=== PATIENT | male | born 1960 | race Two or more races ===

== ENCOUNTER 2016-10-06 21:02 | Inpatient (IN) | payer MEDICARE, OTHER ==
[~2016-10-06] VITALS: Ht 180.3 cm; Wt 68.9 kg
[2016-10-06 20:00] VITALS: BP 124/77
[2016-10-06 21:45] VITALS: BP 124/77
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
[2016-10-06] MEDS ORDERED: ACETAMINOPHEN 325 MG TABLET PO PRN (22:00)
[2016-10-06] MEDS ORDERED: MAG HYDROX/AL HYDROX/SIMETH 30 ML UDC PO PRN (22:00)
[2016-10-06] MEDS ORDERED: TEMAZEPAM 7.5 MG CAPSULE PO PRN (22:00)
[2016-10-06] MEDS ORDERED: MAGNESIUM HYDROXIDE 30 ML UDC PO PRN (22:00)
[2016-10-06] MEDS ORDERED: LORAZEPAM 0.5 MG TABLET ONE (23:03)
[2016-10-06] MEDS ORDERED: TEMAZEPAM 7.5 MG CAPSULE ONE (23:03)
[2016-10-07] MEDS ORDERED: MEMA28CA PO (00:24)
[2016-10-07] MEDS ORDERED: LOVA20TA2 PO (00:24)
[2016-10-07] MEDS ORDERED: LEVE500T9 PO (00:24)
--- NOTE | 2016-10-07 00:46 | NUR ---
GPS RN NOTES REMOVED ATIVAN INSTEAD OF KLONOPIN. MEDICATION ALREADY OPENED. WASTED ATIVAN.
[2016-10-07 06:43] LABS: BASOPHILS % (AUTO) 0.3 % (0.0-2.0); EOSINOPHILS # (AUTO) 0.1 /CMM (0.0-0.7); EOSINOPHILS % (AUTO) 1.8 % (0.0-6.0); HEMATOCRIT 42 % (39-51); HEMOGLOBIN 14.3 g/dL (13.5-17.5); LYMPHOCYTES # (AUTO) 1.6 /CMM (0.8-4.8); LYMPHOCYTES % (AUTO) 29.4 % (20.0-44.0); MEAN CORPUSCULAR HEMOGLOBIN 32 PG (26.0-33.0); MEAN CORPUSCULAR HGB CONC 34 g/dl (31.0-36.0); MEAN CORPUSCULAR VOLUME 93 fL (80-96); MONOCYTES # (AUTO) 0.2 /CMM (0.1-1.30); MONOCYTES % (AUTO) 3.8 % (2.0-12.0); NEUTROPHILS # (AUTO) 3.5 /CMM (1.8-8.9); NEUTROPHILS % (AUTO) 64.7 % (43.0-81.0); PLATELET COUNT (AUTO) 210 /CMM (150-450); RDW COEFFICIENT OF VARIATION 12.9 (11.5-15.0); RED BLOOD CELL COUNT(AUTO) 4.47 MIL/uL (4.5-6.0); WHITE BLOOD COUNT (AUTO) 5.4 K/uL (4.3-11.0)
[2016-10-07 07:01] LABS: CALCIUM, SERUM 8.9 mg/dL (8.5-10.1); CREATININE 0.8 mg/dL (0.6-1.3); POTASSIUM 3.7 mmol/L (3.5-5.1); TOTAL PROTEIN, SERUM 7.5 g/dL (6.4-8.2)
[2016-10-07] MEDS ORDERED: LORA1TAB PO (07:45)
[2016-10-07] MEDS ORDERED: RISP0.253 PO (07:45)
[2016-10-07 08:00] VITALS: BP 120/79
[2016-10-07] MEDS: DIVALPROEX SODIUM 250 MG TABLET.DR PO SCH ×3 (11:28→17:14)
[2016-10-07] MEDS: risperiDONE 1 MG TABLET PO SCH ×2 (11:28→17:14)
--- NOTE | 2016-10-07 12:03 | NUR ---
Initial discharge plan: Pt. lives with significant other [address] [place] [address] Donna [phone] and per Donna she would like him to be placed in a facility as he has been becoming more and more aggressive. She states that pt's sister, Nida [phone] might want to take the patient to her house but SW will confirm that when pt. stabilizes further. Pt. may need placement. SW will follow up with MD and will speak with family again regarding safe and appropriate discharge plan.
[2016-10-07 15:58] VITALS: BP 115/55
[2016-10-07] MEDS: MEMANTINE HCL 5 MG TABLET PO SCH (17:14)
--- NOTE | 2016-10-07 19:17 | NUR ---
GPS/RN NOTE: RECEIVED UP ON THE DENYS-CHAIR, RESTING COMFORTABLY, NO APPARENT DISTRESS NOTED.
[2016-10-07 20:00] VITALS: BP 101/69
[2016-10-07] MEDS: ATORVASTATIN 10 MG TABLET PO SCH (21:24)
[2016-10-07] MEDS ORDERED: LOVASTATIN (NON FORMULARY) 20 MG TABLET PO SCH (22:00)
[2016-10-08 08:19] VITALS: BP 113/78
[2016-10-08] MEDS: DIVALPROEX SODIUM 250 MG TABLET.DR PO SCH ×2 (08:30→12:06)
[2016-10-08] MEDS: risperiDONE 1 MG TABLET PO SCH ×2 (08:30→17:54)
[2016-10-08] MEDS: MEMANTINE HCL 5 MG TABLET PO SCH ×2 (08:30→17:54)
[2016-10-08] MEDS: clonazePAM 0.5 MG TABLET PO PRN (10:40)
--- NOTE | 2016-10-08 10:40 | NUR ---
GPS/RN KLONOPIN 0.5MG PO GIVEN FOR AGITATION/SCREAMING
[2016-10-08] MEDS: DIVALPROEX SODIUM 125 MG CAP.SPRINK PO SCH ×2 (13:00→17:55)
[2016-10-08 16:00] VITALS: BP 102/72
[2016-10-08] MEDS ORDERED: DIVALPROEX SODIUM 125 MG CAP.SPRINK PO SCH (17:00)
[2016-10-08 20:00] VITALS: BP 130/79
--- NOTE | 2016-10-08 20:56 | NUR ---
GPS/RN NOTE: RESTING IN BED, NO ACUTE DISTRESS NOTED. YELLS, SCREAMS INTERMITTENTLY. WILL CONTINUE TO MONITOR Q 15 MINS. TO MAINTAIN SAFETY.
[2016-10-08] MEDS: ATORVASTATIN 10 MG TABLET PO SCH (21:29)
[2016-10-09 08:00] VITALS: BP 102/66
[2016-10-09] MEDS: MEMANTINE HCL 5 MG TABLET PO SCH ×2 (08:09→16:48)
[2016-10-09] MEDS: risperiDONE 1 MG TABLET PO SCH ×2 (08:09→16:48)
[2016-10-09] MEDS: clonazePAM 0.5 MG TABLET PO PRN (08:09)
[2016-10-09] MEDS: DIVALPROEX SODIUM 125 MG CAP.SPRINK PO SCH ×3 (08:09→16:48)
--- NOTE | 2016-10-09 08:09 | NUR ---
[id number]: GAVE ATIVAN 0.5 MG PO FOR ANXIETY UPON PT REQUEST AND WILL CONTINUE TO MONITOR FOR EFFECTIVENESS OF MEDICATION
--- NOTE | 2016-10-09 12:56 | NUR ---
[id number]: DIDN'T ADMINISTER DEPAKOTE 250 MG PO DUE TO PT IS SLEEPING AND WILL CONTINUE TO MONITOR.
--- NOTE | 2016-10-09 14:08 | NUR ---
[id number]: FAMILY MEMBER NAMED NAOMI DUCKWORTH REQUEST PT TO BE PLACED ON DNR AND SIGNED POLST FORM. CALLED DR. ZAVALA TO GET ORDER FOR DNR AND WITNESSED BY NURSE AND CHARGE NURSE AND NOTIFIED DR. ZAVALA THAT THIS ORDER NEEDS TO BE SIGNED BY A PHYSICIAN WITHIN THE NEXT 24 HOURS.
[2016-10-09 16:00] VITALS: BP 100/60
--- NOTE | 2016-10-09 20:15 | NUR ---
GPS RN NOTE, PATIENT VIAL SIGNS ARE FOLLOWS BP 101/63, TEMP 98.9, RASPATORY 19, PULSE 100, AND SPO2 OF 90%. PATIENT LUNG SOUNDS HAVE WHEEZE THOUGH OUT AND ARE DIMINISHED AT THE BASES UPON AUSCULTATION. PAGED [facility] AND INFORMED WITH SANTHOSH CHACON OF MY FINDINGS. SANTHOSH CHACON ORDERED ALBUTEROL 2.5MG VIA NEB Q6HR PRN, MUCOMYST 600MG Q8HR PRN, OXYGEN 2 LITERS VIA OXYGEN CONCENTRATOR AND CHEST X - RAY STAT. ALL ORDERS NOTED AND CARRIED OUT. WILL CONTINUE TO MONITOR THIS PATIENT.
[2016-10-09 20:23] VITALS: BP 101/63
[2016-10-09] MEDS ORDERED: ALBUTEROL FS 2.5 MG/3 ML VIAL.NEB NEB PRN (20:30)
[2016-10-09] MEDS ORDERED: ACETYLCYSTEINE 20% SOLN 800 MG/4 ML VIAL NEB PRN (20:30)
[2016-10-09] MEDS ORDERED: ALBUTEROL FS 2.5 MG/3 ML VIAL.NEB ONE (21:15)
[2016-10-09] MEDS ORDERED: ACETYLCYSTEINE 10% SOLN 400 MG/4 ML VIAL ONE (21:15)
[2016-10-09] MEDS: ATORVASTATIN 10 MG TABLET PO SCH (21:20)
[2016-10-09] MEDS ORDERED: ACETYLCYSTEINE 10% SOLN 400 MG/4 ML VIAL NEB PRN (21:30)
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
--- NOTE | 2016-10-09 22:56 | NUR ---
GPS/RN NOTE: SPOKE TO MATTHEW LIRA, RE: CHEST X-RAY RESULT. SHE SAID THAT SHE WILL COME TO SEE PATIENT ANTWANIGHT.
[2016-10-09 23:24] LABS: BASOPHILS % (AUTO) 0.2 % (0.0-2.0); EOSINOPHILS % (AUTO) 0.1 % (0.0-6.0); HEMATOCRIT 45 % (39-51); HEMOGLOBIN 15.1 g/dL (13.5-17.5); LYMPHOCYTES # (AUTO) 1.9 /CMM (0.8-4.8); LYMPHOCYTES % (AUTO) 12.4 % (20.0-44.0); MEAN CORPUSCULAR HEMOGLOBIN 31 PG (26.0-33.0); MEAN CORPUSCULAR HGB CONC 33 g/dl (31.0-36.0); MEAN CORPUSCULAR VOLUME 94 fL (80-96); MONOCYTES # (AUTO) 0.8 /CMM (0.1-1.30); MONOCYTES % (AUTO) 4.8 % (2.0-12.0); NEUTROPHILS % (AUTO) 82.5 % (43.0-81.0); PLATELET COUNT (AUTO) 186 /CMM (150-450); RDW COEFFICIENT OF VARIATION 12.8 (11.5-15.0); RED BLOOD CELL COUNT(AUTO) 4.83 MIL/uL (4.5-6.0); WHITE BLOOD COUNT (AUTO) 15.7 K/uL (4.3-11.0)
[2016-10-09 23:29] LABS: CALCIUM, SERUM 8.9 mg/dL (8.5-10.1); CREATININE 1.2 mg/dL (0.6-1.3)
--- NOTE | 2016-10-10 02:05 | NUR ---
GPS RN NOTE, SANTHOSH CHACON ORDERED TO DISCHARGE TO [facility] AND ADMIT PATIENT A TELE PATIENT FOR PNEUMONIA. PATIENT IS STABLE CONDITION FOR TRANSFER. PATIENT UNABLE TO SIGN PAPERWORK ALTHOUGH WITNESS / COSIGNER WAS PRESENT. PATIENT BELONGINGS SENT WITH PATIENT. MEDICATIONS WERE RECONCILED WITH DR MALAVE AND SANTHOSH CHACON. REPORT GIVEN TO BLANCA VERDIN ON .
[2016-10-10] MEDS ORDERED: MAG30ORA PO (02:42)
[2016-10-10] MEDS ORDERED: ATOR10TA PO (02:42)
[2016-10-10] MEDS ORDERED: ACET-868 PO (02:42)
[2016-10-10] MEDS ORDERED: MAGN400O6 PO (02:42)
[2016-10-10] MEDS ORDERED: CLON0.5T PO (02:42)
[2016-10-10] MEDS ORDERED: TEMA7.5C PO (02:42)
[2016-10-10] MEDS ORDERED: ACET1OOV6 HHN (02:42)
[2016-10-10] MEDS ORDERED: ATOR10TA GT (02:42)
[2016-10-10] MEDS ORDERED: RISP0.5T2 PO (02:42)
[2016-10-10] MEDS ORDERED: DIVA125C PO (02:42)
[2016-10-10] MEDS ORDERED: MEMA10TA PO (02:42)
[2016-10-10] MEDS ORDERED: ALBU2.5V38 NEB (02:51)
[2016-10-12] MEDS ORDERED: LEVO750T21 PO (10:16)
== END 2016-10-10 02:06 | disposition short-term general hospital (02) | DRG 885 ==
LOC: EDSEX 21:02 → GPS 21:02
PROVIDERS: ADMIT Psychiatry & Neurology Psychiatry; ATTEND Family Medicine
DX: F29 Unspecified psychosis not due to a substance or known physiological condition (principal); J18.9 Pneumonia, unspecified organism; G93.40 Encephalopathy, unspecified; F39 Unspecified mood [affective] disorder; E78.5 Hyperlipidemia, unspecified; F03.90 Unspecified dementia, unspecified severity, without behavioral disturbance, psychotic disturbance, mood disturbance, and anxiety; Z73.6 Limitation of activities due to disability
CPT/HCPCS: 36415; 71010-TC; 80048-TC; 80053-TC; 80061-TC; 85025-TC; 87081-TC

== ENCOUNTER 2016-10-10 01:45 | Inpatient (IN) | payer MEDICARE, OTHER ==
[~2016-10-10] VITALS: Ht 175.3 cm; Wt 71.8 kg
[~2016-10-10 01:45] MED LIST: LEVE500T9 PO; LOVA20TA2 PO; MEMA28CA PO
[2016-10-10 01:55] VITALS: BP 96/68
[2016-10-10] MEDS ORDERED: ACET1OOV6 HHN (02:42)
[2016-10-10] MEDS ORDERED: MAGN400O6 PO (02:42)
[2016-10-10] MEDS ORDERED: ATOR10TA PO (02:42)
[2016-10-10] MEDS ORDERED: CLON0.5T PO (02:42)
[2016-10-10] MEDS ORDERED: ATOR10TA GT (02:42)
[2016-10-10] MEDS ORDERED: MAG30ORA PO (02:42)
[2016-10-10] MEDS ORDERED: RISP0.5T2 PO (02:42)
[2016-10-10] MEDS ORDERED: TEMA7.5C PO (02:42)
[2016-10-10] MEDS ORDERED: DIVA125C PO (02:42)
[2016-10-10] MEDS ORDERED: MEMA10TA PO (02:42)
[2016-10-10] MEDS ORDERED: ACET-868 PO (02:42)
[2016-10-10] MEDS ORDERED: ALBU2.5V38 NEB (02:51)
[2016-10-10] MEDS ORDERED: ONDANSETRON HCL/PF 4 MG/2 ML VIAL IVP PRN (04:00)
[2016-10-10] MEDS ORDERED: DEXTROSE 50%-WATER 50 ML DISP.SYRIN IV PRN (04:00)
[2016-10-10] MEDS ORDERED: ZOLPIDEM TARTRATE 5 MG TABLET GT PRN (04:00)
[2016-10-10] MEDS ORDERED: ACETAMINOPHEN 325 MG TABLET PO PRN (04:00)
[2016-10-10] MEDS ORDERED: LEVOFLOXACIN 750 MG /D5W 150ML 750 MG in PREMIX 1 EA IV SCH (04:00)
[2016-10-10] MEDS ORDERED: INSULIN REGULAR, HUMAN 100 UNIT/ML 3 ML VIAL SQ PRN (04:00)
[2016-10-10] MEDS: CEFTRIAXONE 1 G in IV D5W 50 ML IV SCH (04:00)
[2016-10-10] MEDS ORDERED: Z GUARD REMEDY 2 OZ OINT TP PRN (04:00)
[2016-10-10] MEDS ORDERED: HYDROCODONE/APAP 5/325MG 1 EACH TABLET PO PRN (04:00)
[2016-10-10] MEDS ORDERED: IPRATROPIUM NEB FS 0.5 MG/2.5 ML AMPUL.NEB NEB PRN (04:30)
[2016-10-10] MEDS ORDERED: ALBUTEROL FS 2.5 MG/0.5 ML VIAL.NEB NEB PRN (04:30)
[2016-10-10] MEDS ORDERED: TEMAZEPAM 7.5 MG CAPSULE PO PRN (04:30)
[2016-10-10] MEDS ORDERED: CEFTRIAXONE 1 G VIAL ONE (05:19)
[2016-10-10] MEDS ORDERED: IV D5W 50 ML IV ONE (05:20)
[2016-10-10] MEDS ORDERED: PANTOPRAZOLE 40 MG VIAL ONE (05:20)
[2016-10-10] MEDS ORDERED: LEVOFLOXACIN 750 MG /D5W 150ML 150 ML IV ONE (05:20)
[2016-10-10] MEDS ORDERED: IV SET PRIMARY PUMP SET 1 EA INFUS.SET MC ONE (05:33)
[2016-10-10] MEDS ORDERED: IV NS 0.9% 1,000 ML ONE (05:33)
[2016-10-10] MEDS ORDERED: SECONDARY IV SET 1 EA INFUS.SET MC ONE (05:34)
[2016-10-10] MEDS: PANTOPRAZOLE 40 MG VIAL IV SCH (05:52)
[2016-10-10] MEDS: IV NS 0.9% 1,000 ML IV PRN ×2 (05:54→21:01)
[2016-10-10] MEDS: LEVOFLOXACIN 750 MG /D5W 150ML 750 MG in PREMIX 1 EA IV SCH (06:00)
[2016-10-10 06:58] LABS: BASOPHILS % (AUTO) 0.2 % (0.0-2.0); EOSINOPHILS % (AUTO) 0.2 % (0.0-6.0); HEMATOCRIT 43 % (39-51); HEMOGLOBIN 14.4 g/dL (13.5-17.5); LYMPHOCYTES # (AUTO) 1.1 /CMM (0.8-4.8); LYMPHOCYTES % (AUTO) 8.5 % (20.0-44.0); MEAN CORPUSCULAR HEMOGLOBIN 32 PG (26.0-33.0); MEAN CORPUSCULAR HGB CONC 34 g/dl (31.0-36.0); MEAN CORPUSCULAR VOLUME 94 fL (80-96); MONOCYTES # (AUTO) 0.7 /CMM (0.1-1.30); MONOCYTES % (AUTO) 5.2 % (2.0-12.0); NEUTROPHILS # (AUTO) 11.2 /CMM (1.8-8.9); NEUTROPHILS % (AUTO) 85.9 % (43.0-81.0); PLATELET COUNT (AUTO) 192 /CMM (150-450); RDW COEFFICIENT OF VARIATION 12.8 (11.5-15.0); RED BLOOD CELL COUNT(AUTO) 4.52 MIL/uL (4.5-6.0)
[2016-10-10 07:01] VITALS: BP_SYST 93
[2016-10-10 07:15] LABS: CREATININE 1.1 mg/dL (0.6-1.3); POTASSIUM 4.1 mmol/L (3.5-5.1)
[2016-10-10] MEDS: BLOOD SUGAR DIAGNOSTIC 1 EACH STRIP IN SCH ×4 (07:30→21:00)
[2016-10-10] MEDS: LEVETIRACETAM SOL (5 ML) 100 MG/ML UDC GT SCH ×2 (09:36→20:57)
[2016-10-10] MEDS: MEMANTINE HCL 5 MG TABLET PO SCH ×2 (09:37→17:12)
[2016-10-10] MEDS: risperiDONE 1 MG TABLET PO SCH ×2 (09:37→17:12)
[2016-10-10 20:00] VITALS: BP 99/53
[2016-10-10] MEDS: ATORVASTATIN 10 MG TABLET PO SCH (21:00)
[2016-10-10] MEDS ORDERED: ATORVASTATIN 10 MG TABLET GT SCH (22:00)
[2016-10-11] MEDS: ACETYLCYSTEINE 10% SOLN 400 MG/4 ML VIAL NEB SCH ×4 (01:35→23:15)
[2016-10-11] MEDS: CEFTRIAXONE 1 G in IV D5W 50 ML IV SCH (03:30)
[2016-10-11] MEDS: PANTOPRAZOLE 40 MG VIAL IV SCH (03:35)
[2016-10-11] MEDS: LEVOFLOXACIN 750 MG /D5W 150ML 750 MG in PREMIX 1 EA IV SCH (05:05)
[2016-10-11] MEDS: BLOOD SUGAR DIAGNOSTIC 1 EACH STRIP IN SCH ×4 (06:37→21:39)
[2016-10-11 07:58] LABS: BASOPHILS % (AUTO) 0.3 % (0.0-2.0); EOSINOPHILS # (AUTO) 0.1 /CMM (0.0-0.7); EOSINOPHILS % (AUTO) 1.5 % (0.0-6.0); HEMATOCRIT 34 % (39-51); HEMOGLOBIN 11.4 g/dL (13.5-17.5); LYMPHOCYTES # (AUTO) 1.1 /CMM (0.8-4.8); LYMPHOCYTES % (AUTO) 16.1 % (20.0-44.0); MEAN CORPUSCULAR HEMOGLOBIN 32 PG (26.0-33.0); MEAN CORPUSCULAR HGB CONC 33 g/dl (31.0-36.0); MEAN CORPUSCULAR VOLUME 94 fL (80-96); MONOCYTES # (AUTO) 0.5 /CMM (0.1-1.30); MONOCYTES % (AUTO) 6.8 % (2.0-12.0); NEUTROPHILS # (AUTO) 5.4 /CMM (1.8-8.9); NEUTROPHILS % (AUTO) 75.3 % (43.0-81.0); PLATELET COUNT (AUTO) 160 /CMM (150-450); RDW COEFFICIENT OF VARIATION 12.7 (11.5-15.0); RED BLOOD CELL COUNT(AUTO) 3.64 MIL/uL (4.5-6.0); WHITE BLOOD COUNT (AUTO) 7.1 K/uL (4.3-11.0)
[2016-10-11 08:00] VITALS: BP 94/56
[2016-10-11 08:19] LABS: CALCIUM, SERUM 8.4 mg/dL (8.5-10.1); CREATININE 0.9 mg/dL (0.6-1.3); PHOSPHORUS 3.4 mg/dL (2.5-4.9)
[2016-10-11] MEDS: MEMANTINE HCL 5 MG TABLET PO SCH ×2 (08:23→18:06)
[2016-10-11] MEDS: risperiDONE 1 MG TABLET PO SCH ×2 (08:23→18:06)
[2016-10-11] MEDS: LEVETIRACETAM SOL (5 ML) 100 MG/ML UDC GT SCH ×2 (08:23→21:38)
[2016-10-11] MEDS ORDERED: BISACODYL SUPP (10 MG) 10 MG/SUPP.RECT SUPP.RECT RC PRN (12:30)
[2016-10-11] MEDS: IV NS 0.9% 1,000 ML IV PRN (13:24)
[2016-10-11] MEDS: clonazePAM 0.5 MG TABLET PO PRN (15:58)
[2016-10-11 16:02] VITALS: BP 109/59
[2016-10-11] MEDS: LACTOBACILLUS RHAMNOSUS GG 1 EACH CAP.SPRINK PO SCH (18:06)
[2016-10-11] MEDS: ATORVASTATIN 10 MG TABLET PO SCH (21:38)
[2016-10-12] MEDS: PANTOPRAZOLE 40 MG VIAL IV SCH (04:00)
[2016-10-12] MEDS: LEVOFLOXACIN 750 MG /D5W 150ML 750 MG in PREMIX 1 EA IV SCH (06:21)
[2016-10-12] MEDS: BLOOD SUGAR DIAGNOSTIC 1 EACH STRIP IN SCH ×2 (06:25→12:56)
[2016-10-12] MEDS: IV NS 0.9% 1,000 ML IV PRN (06:28)
[2016-10-12 08:00] VITALS: BP 100/54
[2016-10-12] MEDS: ACETYLCYSTEINE 10% SOLN 400 MG/4 ML VIAL NEB SCH ×2 (08:08→14:35)
[2016-10-12] MEDS: LEVETIRACETAM SOL (5 ML) 100 MG/ML UDC GT SCH (08:28)
[2016-10-12] MEDS: risperiDONE 1 MG TABLET PO SCH (08:28)
[2016-10-12] MEDS: LACTOBACILLUS RHAMNOSUS GG 1 EACH CAP.SPRINK PO SCH (08:29)
[2016-10-12] MEDS: MEMANTINE HCL 5 MG TABLET PO SCH (08:29)
[2016-10-12] MEDS: DIVALPROEX SODIUM 125 MG CAP.SPRINK PO SCH ×2 (08:29→14:02)
[2016-10-12] MEDS: clonazePAM 0.5 MG TABLET PO PRN (10:12)
[2016-10-12] MEDS ORDERED: LEVO750T21 PO (10:16)
[2016-10-12] MEDS ORDERED: BISA10SU8 RC (16:04)
[2016-10-12] MEDS ORDERED: RISP0.2515 PO (16:04)
[2016-10-12] MEDS ORDERED: BLOO-668 IN (16:04)
[2016-10-12] MEDS ORDERED: ACID1TAB12 PO (16:04)
[2016-10-12] MEDS ORDERED: HYDR-3326 PO (16:04)
[2016-10-12] MEDS ORDERED: ALLA266C2 TP (16:04)
[2016-10-12] MEDS ORDERED: IPRA0.2S9 IH (16:04)
[2016-10-12] MEDS ORDERED: PANT40TA4 PO (16:04)
[2016-10-12] MEDS ORDERED: ONDA-25 PO (16:04)
[2016-10-12] MEDS ORDERED: INSU100V3 SQ (16:04)
== END 2016-10-12 15:17 | DRG 177 ==
LOC: TELE 01:45 → MED 11:29
PROVIDERS: ADMIT Nurse Practitioner Acute Care; ATTEND Internal Medicine
DX: J69.0 Pneumonitis due to inhalation of food and vomit (principal); G93.40 Encephalopathy, unspecified; E11.9 Type 2 diabetes mellitus without complications; F03.90 Unspecified dementia, unspecified severity, without behavioral disturbance, psychotic disturbance, mood disturbance, and anxiety; F29 Unspecified psychosis not due to a substance or known physiological condition; E78.5 Hyperlipidemia, unspecified; I10 Essential (primary) hypertension; Z73.6 Limitation of activities due to disability
CPT/HCPCS: 36415; 80048-TC; 80061-TC; 82962-TC; 83735-TC; 83880; 84100-TC; 85025-TC; 87081-TC; 92611-TC; 94799-TC; A4216; C9113; J0696; J1815; J1953; J1956; J7030; J7060

== ENCOUNTER 2016-10-12 15:22 | Inpatient (IN) | payer MEDICARE, OTHER ==
[~2016-10-12] VITALS: Ht 170.2 cm; Wt 77.1 kg
[~2016-10-12 15:22] MED LIST changes: +ACET-868 PO; +ACET1OOV6 HHN; +ALBU2.5V38 NEB; +ATOR10TA GT; +ATOR10TA PO; +CLON0.5T PO; +DIVA125C PO; +LEVO750T21 PO; +MAG30ORA PO; +MAGN400O6 PO; +MEMA10TA PO; +RISP0.5T2 PO; +TEMA7.5C PO
[2016-10-12 16:00] VITALS: BP 108/65
--- NOTE | 2016-10-12 16:00 | NUR ---
[id number]: PT IS 56 YEARS OLD MALE ADMITTED ON 5150 FOR GD. ACCORDING TO HOLD PT IS DISORGANIZED, UNABLE TO CARE FOR SELF INCLUDING FOOD, CLOTHING, AND PRISON. UPON [id number] ASSESSMENT PT IS CONFUSED, DISORGANIZED, NON-VERBAL, YELLING, SCREAMING INTERMITTENTLY, UNPREDICTABLE. PT HAS PNEUMONIA GRAM POSITIVE RODS, CHRONIC ENCEPHALOPATHY, HTN, HYPERLIPIDEMIA, DM, PSYCHOSIS, DEMENTIA. NOTIFIED FAMILY. NOTIFIED DR. DAVID AND DR. MURRAY MADE AWARE. PROVIDE PT WITH PT'S RIGHT HANDBOOK. DISCUSS MEAL TIMES AND FRESH AIR BREAKS. PT IS BEDBOUND, NEEDS ASSISTANCE WITH ADLS, INCONTINENT. BELONGINGS STORED AND DOCUMENTED. ALL PAPERWORK AND COMPUTER DOCUMENTATION COMPLETE. WILL ENDORSE TO INCOMING NURSE TO DOUBLE CHECK ALL PAPERWORK AND COMPUTER DOCUMENTATION.
[2016-10-12] MEDS ORDERED: ONDA-25 PO (16:04)
[2016-10-12] MEDS ORDERED: ACID1TAB12 PO (16:04)
[2016-10-12] MEDS ORDERED: BISA10SU8 RC (16:04)
[2016-10-12] MEDS ORDERED: ALLA266C2 TP (16:04)
[2016-10-12] MEDS ORDERED: RISP0.2515 PO (16:04)
[2016-10-12] MEDS ORDERED: PANT40TA4 PO (16:04)
[2016-10-12] MEDS ORDERED: HYDR-3326 PO (16:04)
[2016-10-12] MEDS ORDERED: INSU100V3 SQ (16:04)
[2016-10-12] MEDS ORDERED: BLOO-668 IN (16:04)
[2016-10-12] MEDS ORDERED: IPRA0.2S9 IH (16:04)
[2016-10-12] MEDS ORDERED: MAG HYDROX/AL HYDROX/SIMETH 30 ML UDC PO PRN (16:30)
[2016-10-12] MEDS ORDERED: MAGNESIUM HYDROXIDE 30 ML UDC PO PRN (16:30)
[2016-10-12] MEDS ORDERED: ACETAMINOPHEN 325 MG TABLET PO PRN (16:30)
--- NOTE | 2016-10-12 18:08 | NUR ---
[id number]: NOTIFIED DR. VAZQUEZ IS NOT COVERING TODAY AND IS DR. GOINS. NOTIFIED DR. GOINS ABOUT NEW ADMISSION
[2016-10-12] MEDS ORDERED: Z GUARD REMEDY 2 OZ OINT TP PRN (19:00)
[2016-10-12] MEDS ORDERED: ONDANSETRON 4 MG TAB.RAPDIS PO PRN (19:00)
[2016-10-12] MEDS ORDERED: ALBUTEROL FS 2.5 MG/3 ML VIAL.NEB NEB PRN (19:00)
[2016-10-12 19:44] LABS: BASOPHILS # (AUTO) 0.3 /CMM (0.0-0.2); BASOPHILS % (AUTO) 3.3 % (0.0-2.0); EOSINOPHILS # (AUTO) 0.3 /CMM (0.0-0.7); EOSINOPHILS % (AUTO) 3.5 % (0.0-6.0); HEMATOCRIT 36 % (39-51); HEMOGLOBIN 12.4 g/dL (13.5-17.5); LYMPHOCYTES # (AUTO) 1.7 /CMM (0.8-4.8); LYMPHOCYTES % (AUTO) 21.7 % (20.0-44.0); MEAN CORPUSCULAR HEMOGLOBIN 32 PG (26.0-33.0); MEAN CORPUSCULAR HGB CONC 34 g/dl (31.0-36.0); MEAN CORPUSCULAR VOLUME 93 fL (80-96); MONOCYTES # (AUTO) 0.5 /CMM (0.1-1.30); MONOCYTES % (AUTO) 6.1 % (2.0-12.0); NEUTROPHILS # (AUTO) 4.8 /CMM (1.8-8.9); NEUTROPHILS % (AUTO) 65.4 % (43.0-81.0); PLATELET COUNT (AUTO) 223 /CMM (150-450); RDW COEFFICIENT OF VARIATION 11.8 (11.5-15.0); RED BLOOD CELL COUNT(AUTO) 3.92 MIL/uL (4.5-6.0); WHITE BLOOD COUNT (AUTO) 7.6 K/uL (4.3-11.0)
[2016-10-12] MEDS: LEVOFLOXACIN (500MG) 500 MG TABLET PO SCH (19:46)
[2016-10-12 19:50] LABS: CALCIUM, SERUM 8.3 mg/dL (8.5-10.1); CREATININE 0.9 mg/dL (0.6-1.3); MAGNESIUM 1.8 mg/dL (1.8-2.4); POTASSIUM 3.8 mmol/L (3.5-5.1)
[2016-10-12 20:00] VITALS: BP 109/54
[2016-10-12 20:30] VITALS: BP 110/67
[2016-10-12] MEDS: ATORVASTATIN 10 MG TABLET PO SCH (21:10)
[2016-10-12] MEDS: LEVETIRACETAM (250 MG) 250 MG TABLET PO SCH (21:10)
[2016-10-12] MEDS: LORAZEPAM 0.5 MG TABLET PO PRN (21:11)
--- NOTE | 2016-10-12 21:22 | NUR ---
GPS/RN PATIENT ANXIOUS, AGITATED, YELLING, ADMINISTERED ATIVAN 0.5 PO PRN GIVEN, WILL CONTINUE TO MONITOR.
[2016-10-12] MEDS: TEMAZEPAM 7.5 MG CAPSULE PO PRN (22:50)
[2016-10-12] MEDS: ACETYLCYSTEINE 10% SOLN 400 MG/4 ML VIAL HHN SCH (23:21)
[2016-10-12] MEDS: ALBUTEROL HALF STRENGTH 1.25 MG/3 ML VIAL.NEB NEB PRN (23:21)
[2016-10-12] MEDS: IPRATROPIUM NEB FS 0.5 MG/2.5 ML AMPUL.NEB IH PRN (23:21)
[2016-10-13 07:14] LABS: BASOPHILS % (AUTO) 0.6 % (0.0-2.0); EOSINOPHILS # (AUTO) 0.2 /CMM (0.0-0.7); EOSINOPHILS % (AUTO) 3.2 % (0.0-6.0); HEMATOCRIT 36 % (39-51); HEMOGLOBIN 12.2 g/dL (13.5-17.5); LYMPHOCYTES # (AUTO) 1.4 /CMM (0.8-4.8); LYMPHOCYTES % (AUTO) 24.6 % (20.0-44.0); MEAN CORPUSCULAR HEMOGLOBIN 32 PG (26.0-33.0); MEAN CORPUSCULAR HGB CONC 34 g/dl (31.0-36.0); MEAN CORPUSCULAR VOLUME 93 fL (80-96); MONOCYTES # (AUTO) 0.3 /CMM (0.1-1.30); NEUTROPHILS # (AUTO) 3.8 /CMM (1.8-8.9); NEUTROPHILS % (AUTO) 65.6 % (43.0-81.0); PLATELET COUNT (AUTO) 227 /CMM (150-450); RDW COEFFICIENT OF VARIATION 12.8 (11.5-15.0); RED BLOOD CELL COUNT(AUTO) 3.84 MIL/uL (4.5-6.0); WHITE BLOOD COUNT (AUTO) 5.8 K/uL (4.3-11.0)
[2016-10-13 07:31] LABS: BILIRUBIN,TOTAL 0.5 mg/dL (0.2-1.0); CALCIUM, SERUM 8.4 mg/dL (8.5-10.1); CREATININE 0.8 mg/dL (0.6-1.3); MAGNESIUM 1.8 mg/dL (1.8-2.4); POTASSIUM 3.8 mmol/L (3.5-5.1); TOTAL PROTEIN, SERUM 6.6 g/dL (6.4-8.2)
[2016-10-13 07:36] LABS: THYROID STIMULATING HORMONE 1.459 uIU/mL (0.358-3.74)
[2016-10-13] MEDS: ACETYLCYSTEINE 10% SOLN 400 MG/4 ML VIAL HHN SCH ×3 (08:23→23:30)
[2016-10-13] MEDS: ALBUTEROL HALF STRENGTH 1.25 MG/3 ML VIAL.NEB NEB PRN ×2 (08:23→15:27)
[2016-10-13] MEDS: ACIDOPHILUS/BULGARICUS 1 EACH TAB.CHEW PO SCH ×2 (08:40→16:51)
[2016-10-13] MEDS: PANTOPRAZOLE 40 MG TABLET.DR PO SCH (08:40)
[2016-10-13] MEDS: LEVETIRACETAM (250 MG) 250 MG TABLET PO SCH ×2 (08:40→20:36)
[2016-10-13] MEDS: MEMANTINE HCL 5 MG TABLET PO SCH ×2 (08:41→16:52)
[2016-10-13 08:47] VITALS: BP 107/63
[2016-10-13] MEDS: LORAZEPAM 0.5 MG TABLET PO PRN (13:33)
--- NOTE | 2016-10-13 13:34 | NUR ---
GPS/RN PATIENT ANXIOUS, RESTLESS, AGITATED, ADMINISTERED ATIVAN 0.5 ORDERED, WILL CONTINUE TO MONITOR.
[2016-10-13 16:22] VITALS: BP 106/56
[2016-10-13 20:00] VITALS: BP 109/63
--- NOTE | 2016-10-13 20:30 | NUR ---
RN INITIAL NOTES: PT IN BED, AWAKE, A/O X1, ABLE TO STATE HIS NAME, OPEN HIS EYES, FOLLOW AND OBEY SIMPLE COMMANDS, PT MOST OF THE TIME HAVE HIS EYES CLOSED. PT ATE 100%. PT HAD PT TODAY, STATED NEEDED MAXIMUM ASSISTANCE. COMPLIANT WITH MEDICATION. WILL CONTINUE TO MONITOR PT [id number] FOR SAFETY AND CHANGES IN BEHAVIOR
--- NOTE | 2016-10-13 20:34 | NUR ---
RN NOTES: RECEIVED CALL FROM PT'S SISTER, TANIA, ASKING HOW PATIENT IS DOING AND THAT SHE WILL COME TOMORROW TO VISIT THE PT, ALSO SHE MENTIONED THAT PHYSICAL THERAPIST CALLED HER BUT SHE DOESNT KNOW THE REASON WHY, I MENTIONED TO HER THAT PT HAD PT TODAY AND THAT THEY NOTED PT TO HAVE ABNORMAL GAIT SO THEY PUT CLARIFICATION ORDER FOR PT X3DAYS.
[2016-10-13] MEDS: LEVOFLOXACIN (500MG) 500 MG TABLET PO SCH (20:36)
[2016-10-13] MEDS: ATORVASTATIN 10 MG TABLET PO SCH (21:36)
--- NOTE | 2016-10-13 21:41 | NUR ---
RN NOTES: ASSISTED PT IN FEEDING, PLACED PT HIGH FOWLERS, PT ATE APPLE SAUCE, JELL-O AND ORANGE JUICE , CONSUMED 100%, NO S/S OF ASPIRATION NOTED,
--- NOTE | 2016-10-13 23:56 | NUR ---
RT PT SLEEPING AT THE MOMENT AT THIS TIME. TX HELD AND WILL CONTINUE WITH FOLLOWING SCHEDULED TIME.
--- NOTE | 2016-10-14 06:32 | NUR ---
RN CLOSING NOTES: PT IN BED, AWAKE, REMAINS A/O X1, NO SOB NOTED, PT REMAINS COMPLIANT WITH MEDICATION, NO ASPIRATION NOTED THROUGHOUT THE SHIFT, NO S/S OF HYPOGLYCEMIA NOTED. VS REMAINS STABLE, NEEDS ATTENDED. WILL ENDORSE TO DAY RN FOR SANDI.
[2016-10-14] MEDS: ACETYLCYSTEINE 10% SOLN 400 MG/4 ML VIAL HHN SCH ×2 (07:35→15:30)
[2016-10-14 08:00] VITALS: BP 92/66
[2016-10-14] MEDS: PANTOPRAZOLE 40 MG TABLET.DR PO SCH (08:10)
[2016-10-14] MEDS: MEMANTINE HCL 5 MG TABLET PO SCH ×2 (08:40→16:33)
[2016-10-14] MEDS: ACIDOPHILUS/BULGARICUS 1 EACH TAB.CHEW PO SCH ×2 (08:41→16:33)
[2016-10-14] MEDS: LEVETIRACETAM (250 MG) 250 MG TABLET PO SCH ×2 (08:41→20:25)
--- NOTE | 2016-10-14 10:36 | NUR ---
Discharge plan: SEVERINO spoke with pt's sister, Nida [phone] who still wants to take the patient home when stable and ready for discharge. Will call back to get Nida's address, as she was in a hurry and was not able to provide it at this time. SEVERINO will help form safe and proper discharge after following up with the psychiatrist.
--- NOTE | 2016-10-14 10:37 | NUR ---
I have reviewed this patients psychosocial dated 10/07/16 11:51 and I can attest to the accuracy of the information therein. There have been no changes since his last assessment. Pt. is still confused and disorganized and unable to participate in a conversation due to his confusion and very limited Irish. SW is unable to assess pt's suicidal/homicidal ideations. Pt's mood appears irritable with flat affect.
--- NOTE | 2016-10-14 13:33 | NUR ---
ASSOCIATE DENTIST-NOTES DR. GOINS AWARE OF PATIENT CODE STATUS AND AGREES.
[2016-10-14 16:00] VITALS: BP 101/59
[2016-10-14] MEDS ORDERED: DIVALPROEX SODIUM 250 MG TABLET.DR PO SCH (17:00)
--- NOTE | 2016-10-14 17:12 | NUR ---
MANAGER REVENUE-NOTES CHANGE DEPAKOTE 250MG P.O TID TO DEPAKOTE SPRINKLE 250MG P.O TID. DR. MALAVE MADE AWARE AND AGREED.
[2016-10-14] MEDS: DIVALPROEX SODIUM 125 MG CAP.SPRINK PO SCH (17:29)
[2016-10-14] MEDS: risperiDONE 1 MG TABLET PO SCH (17:29)
[2016-10-14] MEDS: LEVOFLOXACIN (500MG) 500 MG TABLET PO SCH (18:52)
[2016-10-14 20:00] VITALS: BP 117/56
[2016-10-14] MEDS: HYDROCODONE/APAP 5/325MG 1 EACH TABLET PO PRN (20:26)
[2016-10-14] MEDS: ATORVASTATIN 10 MG TABLET PO SCH (21:11)
[2016-10-15] MEDS: ACETYLCYSTEINE 10% SOLN 400 MG/4 ML VIAL HHN SCH ×3 (01:18→15:35)
[2016-10-15] MEDS: HYDROCODONE/APAP 5/325MG 1 EACH TABLET PO PRN (05:01)
[2016-10-15] MEDS: PANTOPRAZOLE 40 MG TABLET.DR PO SCH (07:54)
[2016-10-15 08:00] VITALS: BP 104/57
[2016-10-15] MEDS: ALBUTEROL HALF STRENGTH 1.25 MG/3 ML VIAL.NEB NEB PRN ×2 (08:32→15:35)
[2016-10-15] MEDS: LEVETIRACETAM (250 MG) 250 MG TABLET PO SCH ×2 (08:48→21:53)
[2016-10-15] MEDS: MEMANTINE HCL 5 MG TABLET PO SCH ×2 (08:48→16:40)
[2016-10-15] MEDS: DIVALPROEX SODIUM 125 MG CAP.SPRINK PO SCH ×3 (08:49→16:40)
[2016-10-15] MEDS: risperiDONE 1 MG TABLET PO SCH ×2 (08:49→16:40)
[2016-10-15] MEDS: ACIDOPHILUS/BULGARICUS 1 EACH TAB.CHEW PO SCH ×2 (08:53→16:40)
--- NOTE | 2016-10-15 19:30 | NUR ---
GPS RN NOTE, RECEIVED PATIENT AWAKE AND IN BED, NO S/S OR COMPLAINTS OF PAIN AT THIS TIME. PATIENT IS DISPLAYING NO S/S OF APPARENT DISTRESS AT THIS TIME. PATIENT BREATHING IS UNLABORED WITH EQUAL RISE AND FALL OF THE CHEST. PATIENT IS ALERT AND ORIENTED X 1 ON ROOM AIR WITH A SPO2 96%. PATIENT COMPLIANT WITH MEDICATION WHEN CRUSHED, DEPRESSED, COOPERATIVE, CONFUSED, AND NEEDS REORIENTATION. PATIENT DENIES SUICIDE AND HOMICIDAL IDEATIONS AT THIS TIME. PATIENT ASSISTED WITH TURNING AND REPOSITIONING Q2HR AND PRN FOR COMFORT AND CIRCULATION. PATIENT HAS NO NEEDS AT THIS TIME. PATIENT EDUCATED ON THE USE OF THE CALL LANZA. PATIENT BED SIDE RAILS UP X2 FOR SAFETY, BED IS LOCKED AND LOW WILL CONTINUE TO MONITOR AND MAINTAIN SAFETY.
[2016-10-15 20:00] VITALS: BP 110/65
[2016-10-15] MEDS: LEVOFLOXACIN (500MG) 500 MG TABLET PO SCH (20:16)
[2016-10-15] MEDS: ATORVASTATIN 10 MG TABLET PO SCH (21:53)
[2016-10-16] MEDS: ACETYLCYSTEINE 10% SOLN 400 MG/4 ML VIAL HHN SCH ×4 (00:03→22:47)
[2016-10-16] MEDS: TEMAZEPAM 7.5 MG CAPSULE PO PRN (02:44)
--- NOTE | 2016-10-16 02:44 | NUR ---
GPS RN NOTE, PATIENT HAS A COMPLAINT OF NOT BEING ABLE TO SLEEP EVIDENCED BY PATIENT CONSENT MOANING. PATIENT VITAL SIGNS ARE STABLE. GAVE RESTORIL 7.5MG PO HS ORDERED. WILL REASSESS FOR INSOMNIA AND I WILL CONTINUE TO MONITOR THIS PATIENT.
[2016-10-16 08:00] VITALS: BP 100/61
[2016-10-16] MEDS: ALBUTEROL HALF STRENGTH 1.25 MG/3 ML VIAL.NEB NEB PRN ×3 (08:19→22:47)
[2016-10-16] MEDS: PANTOPRAZOLE 40 MG TABLET.DR PO SCH (09:35)
[2016-10-16] MEDS: MEMANTINE HCL 5 MG TABLET PO SCH ×2 (09:35→17:16)
[2016-10-16] MEDS: DIVALPROEX SODIUM 125 MG CAP.SPRINK PO SCH ×3 (09:35→17:16)
[2016-10-16] MEDS: ACIDOPHILUS/BULGARICUS 1 EACH TAB.CHEW PO SCH ×2 (09:35→17:16)
[2016-10-16] MEDS: LEVETIRACETAM (250 MG) 250 MG TABLET PO SCH ×2 (09:35→20:10)
[2016-10-16] MEDS: risperiDONE 1 MG TABLET PO SCH ×2 (09:36→17:16)
[2016-10-16 16:07] VITALS: BP 100/64
[2016-10-16] MEDS: HYDROCODONE/APAP 5/325MG 1 EACH TABLET PO PRN (17:27)
[2016-10-16] MEDS: LEVOFLOXACIN (500MG) 500 MG TABLET PO SCH (20:10)
[2016-10-16 20:41] VITALS: BP 93/58
[2016-10-16] MEDS: ATORVASTATIN 10 MG TABLET PO SCH (21:17)
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
[2016-10-17] MEDS: HYDROCODONE/APAP 5/325MG 1 EACH TABLET PO PRN ×2 (03:28→20:24)
[2016-10-17 08:00] VITALS: BP 85/52
[2016-10-17] MEDS: ALBUTEROL HALF STRENGTH 1.25 MG/3 ML VIAL.NEB NEB PRN ×2 (08:27→16:29)
[2016-10-17] MEDS: IPRATROPIUM NEB FS 0.5 MG/2.5 ML AMPUL.NEB IH PRN ×2 (08:27→16:29)
[2016-10-17] MEDS: ACETYLCYSTEINE 10% SOLN 400 MG/4 ML VIAL HHN SCH ×3 (08:27→23:30)
[2016-10-17] MEDS: ACIDOPHILUS/BULGARICUS 1 EACH TAB.CHEW PO SCH ×2 (08:37→16:35)
[2016-10-17] MEDS: LEVETIRACETAM (250 MG) 250 MG TABLET PO SCH ×2 (08:37→20:23)
[2016-10-17] MEDS: risperiDONE 1 MG TABLET PO SCH ×2 (08:37→16:35)
[2016-10-17] MEDS: DIVALPROEX SODIUM 125 MG CAP.SPRINK PO SCH ×3 (08:37→16:35)
[2016-10-17] MEDS: MEMANTINE HCL 5 MG TABLET PO SCH ×2 (08:37→16:35)
[2016-10-17] MEDS: PANTOPRAZOLE 40 MG TABLET.DR PO SCH (08:38)
[2016-10-17 16:24] VITALS: BP 102/60
[2016-10-17] MEDS ORDERED: BISACODYL SUPP (10 MG) 10 MG/SUPP.RECT SUPP.RECT RC PRN (18:00)
[2016-10-17 20:17] VITALS: BP 99/69
[2016-10-17 20:50] VITALS: BP 99/69
[2016-10-17] MEDS: LEVOFLOXACIN (500MG) 500 MG TABLET PO SCH (20:56)
[2016-10-17] MEDS: ATORVASTATIN 10 MG TABLET PO SCH (21:14)
[2016-10-18] MEDS: PANTOPRAZOLE 40 MG TABLET.DR PO SCH (07:30)
[2016-10-18] MEDS: ACETYLCYSTEINE 10% SOLN 400 MG/4 ML VIAL HHN SCH (07:36)
[2016-10-18 08:00] VITALS: BP 97/54
[2016-10-18] MEDS: ACIDOPHILUS/BULGARICUS 1 EACH TAB.CHEW PO SCH ×2 (09:20→17:51)
[2016-10-18] MEDS: MEMANTINE HCL 5 MG TABLET PO SCH ×2 (09:20→17:51)
[2016-10-18] MEDS: DIVALPROEX SODIUM 125 MG CAP.SPRINK PO SCH ×3 (09:20→17:51)
[2016-10-18] MEDS: LEVETIRACETAM (250 MG) 250 MG TABLET PO SCH ×2 (09:20→21:18)
[2016-10-18] MEDS: risperiDONE 1 MG TABLET PO SCH ×2 (09:22→17:51)
[2016-10-18 16:00] VITALS: BP 110/60
--- NOTE | 2016-10-18 19:30 | NUR ---
GPS RN NOTE, RECEIVED PATIENT AWAKE AND IN BED, NO S/S OR COMPLAINTS OF PAIN AT THIS TIME. PATIENT IS DISPLAYING NO S/S OF APPARENT DISTRESS AT THIS TIME. PATIENT BREATHING IS UNLABORED WITH EQUAL RISE AND FALL OF THE CHEST. PATIENT IS ALERT AND ORIENTED X 1 ON ROOM AIR WITH A SPO2 99%. PATIENT COMPLIANT WITH MEDICATION WHEN CRUSHED, DEPRESSED, COOPERATIVE, CONFUSED, AND NEEDS REORIENTATION. PATIENT DENIES SUICIDE AND HOMICIDAL IDEATIONS AT THIS TIME. PATIENT ASSISTED WITH TURNING AND REPOSITIONING Q2HR AND PRN FOR COMFORT AND CIRCULATION. PATIENT HAS NO NEEDS AT THIS TIME. PATIENT EDUCATED ON THE USE OF THE CALL LANZA. PATIENT BED SIDE RAILS UP X2 FOR SAFETY, BED IS LOCKED AND LOW WILL CONTINUE TO MONITOR AND MAINTAIN SAFETY.
[2016-10-18 19:56] VITALS: BP 115/70
[2016-10-18] MEDS: LEVOFLOXACIN (500MG) 500 MG TABLET PO SCH (20:52)
[2016-10-18] MEDS: TEMAZEPAM 7.5 MG CAPSULE PO PRN (21:18)
[2016-10-18] MEDS: ATORVASTATIN 10 MG TABLET PO SCH (21:18)
--- NOTE | 2016-10-18 21:18 | NUR ---
GPS RN NOTE, PATIENT HAS A COMPLAINT OF NOT BEING ABLE TO SLEEP EVIDENCED BY HIS CONSTANT MOANING. PATIENT VITAL SIGNS ARE STABLE. GAVE RESTORIL 7.5MG PO HS ORDERED. WILL REASSESS FOR INSOMNIA AND I WILL CONTINUE TO MONITOR THIS PATIENT.
[2016-10-19] MEDS: HYDROCODONE/APAP 5/325MG 1 EACH TABLET PO PRN ×2 (01:19→18:16)
--- NOTE | 2016-10-19 01:19 | NUR ---
GPS RN NOTE, PATIENT HAS A COMPLAINT OF PAIN EVIDENCED BY HIS MOANING. PATIENT VITAL SIGNS ARE STABLE. GAVE NORCO 5-325 PO Q4HR PRN ORDERED. WILL REASSESS FOR PAIN AND I WILL CONTINUE TO MONITOR THIS PATIENT.
[2016-10-19] MEDS: PANTOPRAZOLE 40 MG TABLET.DR PO SCH (06:42)
--- NOTE | 2016-10-19 07:30 | NUR ---
received pt. alert and oriented x1,confused,opens eyes when asked.cooperative.vs stable.
[2016-10-19 08:00] VITALS: BP 101/64
[2016-10-19] MEDS: DIVALPROEX SODIUM 125 MG CAP.SPRINK PO SCH ×3 (09:58→18:15)
[2016-10-19] MEDS: risperiDONE 1 MG TABLET PO SCH ×2 (09:59→18:15)
[2016-10-19] MEDS: LEVETIRACETAM (250 MG) 250 MG TABLET PO SCH ×2 (09:59→21:23)
[2016-10-19] MEDS: MEMANTINE HCL 5 MG TABLET PO SCH ×2 (09:59→18:16)
[2016-10-19] MEDS: ACIDOPHILUS/BULGARICUS 1 EACH TAB.CHEW PO SCH ×2 (09:59→18:16)
--- NOTE | 2016-10-19 11:30 | NUR ---
family calling in and checking on pt.
--- NOTE | 2016-10-19 14:37 | NUR ---
SEVERINO spoke with pt's sister, Nida [phone] and notified her of pt's discharge tomorrow. She wanted prescription to be faxed to [facility] pharmacy # . PCP for pt. is Dr. Sonal Richardson [phone], who pt. will follow up with. Pt. will be living with his sister, Nida at [address] [place] [id number].
[2016-10-19 16:00] VITALS: BP 123/66
--- NOTE | 2016-10-19 18:00 | NUR ---
yelling out from time to time so given norco tab.
[2016-10-19] MEDS: LEVOFLOXACIN (500MG) 500 MG TABLET PO SCH (20:21)
[2016-10-19 20:25] VITALS: BP 98/69
[2016-10-19] MEDS: ATORVASTATIN 10 MG TABLET PO SCH (21:23)
[2016-10-20 08:07] VITALS: BP 101/53
[2016-10-20] MEDS: DIVALPROEX SODIUM 125 MG CAP.SPRINK PO SCH ×3 (09:01→17:23)
[2016-10-20] MEDS: MEMANTINE HCL 5 MG TABLET PO SCH ×2 (09:01→17:23)
[2016-10-20] MEDS: LEVETIRACETAM (250 MG) 250 MG TABLET PO SCH ×2 (09:01→21:07)
[2016-10-20] MEDS: ACIDOPHILUS/BULGARICUS 1 EACH TAB.CHEW PO SCH ×2 (09:01→17:23)
[2016-10-20] MEDS: risperiDONE 1 MG TABLET PO SCH ×2 (09:01→17:23)
[2016-10-20] MEDS: PANTOPRAZOLE 40 MG TABLET.DR PO SCH (09:01)
[2016-10-20 15:41] VITALS: BP 95/67
[2016-10-20 20:00] VITALS: BP 131/73
[2016-10-20] MEDS: LEVOFLOXACIN (500MG) 500 MG TABLET PO SCH (21:07)
[2016-10-20] MEDS: ATORVASTATIN 10 MG TABLET PO SCH (21:07)
[2016-10-21] MEDS: HYDROCODONE/APAP 5/325MG 1 EACH TABLET PO PRN (03:41)
--- NOTE | 2016-10-21 06:14 | NUR ---
GPS/RN STILL SLEEPING, AROUSABLE, APPEAR COMFORTABLE, NO DISTRESS NOTED. NO BEHAVIOR PROBLEM OVERNIGHT ALL NEEDS ATTENDED AT THIS TIME. WILL CONTINUE TO MONITOR.
[2016-10-21 08:30] VITALS: BP 110/68
[2016-10-21] MEDS: DIVALPROEX SODIUM 125 MG CAP.SPRINK PO SCH ×2 (08:39→12:37)
[2016-10-21] MEDS: risperiDONE 1 MG TABLET PO SCH (08:39)
[2016-10-21] MEDS: PANTOPRAZOLE 40 MG TABLET.DR PO SCH (08:39)
[2016-10-21] MEDS: ACIDOPHILUS/BULGARICUS 1 EACH TAB.CHEW PO SCH (08:39)
[2016-10-21] MEDS: LEVETIRACETAM (250 MG) 250 MG TABLET PO SCH (08:39)
[2016-10-21] MEDS: MEMANTINE HCL 5 MG TABLET PO SCH (08:39)
--- NOTE | 2016-10-21 09:38 | NUR ---
PT. WITH AN ORDER TO D/C HOLD AND D/C TODAY. PT. WITHOUT DISTRESS, DENIES SUICIDAL AND HOMICIDAL. TO FOLLOW UP WITH PSYCH AND MEDICAL DOCTORS.
--- NOTE | 2016-10-21 12:30 | NUR ---
Discharge note: Pt will discharge home with his sister, to [address] [place] [address]. Pt's sister, Lazara [phone] will pick him up via private car. She wanted prescription to be faxed to [facility] pharmacy # . Pt's PCP is Dr. Sonal Richardson [phone] pr [phone] and pt. has a follow up appointment but she was not sure of the date. Per Nida, PCP will refer to a psychiatrist. SW provided information to facilities around the area as requested, since she was interested in possibly placing him if she is unable to take care of him later. SEVERINO also referred the patient to [address] . Discharge paperwork has been signed. Pt. is calm and cooperative and denies suicidal/homicidal ideations.
--- NOTE | 2016-10-21 13:00 | NUR ---
GPS NATURALIST NOTES: PATIENT DISCHARGED HOME WITH SISTER TANIA, PICKED UP VIA PRIVATE CAR. PATIENT'S CONDITION IS STABLE FOR DISCHARGE, VS STABLE. NO VERBALIZATIONS OF SI/HI AT THE TIME OF DISCHARGE. ALL BELONGINGS RETURNED TO THE PATIENT. EDUCATIONAL EXIT CARE PRINTED, SIGNED AND PROVIDED TO THE SISTER TANIA ALONG WITH THE PRESCRIPTIONS, WHICH WERE EARLIER CALLED IN TO THE [facility] (SPOKE WITH PHARMACIST AURORA). PATIENT LEFT THE UNIT ACCOMPANIED BY SISTER, HER FIANCE AND STAFF MEMBER.
== END 2016-10-21 13:00 | disposition home or self-care (01) | DRG 885 ==
LOC: GPS 15:47
PROVIDERS: ADMIT Psychiatry & Neurology Psychiatry; ATTEND Internal Medicine
DX: F29 Unspecified psychosis not due to a substance or known physiological condition (principal); J15.9 Unspecified bacterial pneumonia; G93.41 Metabolic encephalopathy; Z73.6 Limitation of activities due to disability; F39 Unspecified mood [affective] disorder; I10 Essential (primary) hypertension; E78.5 Hyperlipidemia, unspecified; E11.9 Type 2 diabetes mellitus without complications; F03.90 Unspecified dementia, unspecified severity, without behavioral disturbance, psychotic disturbance, mood disturbance, and anxiety; Z87.01 Personal history of pneumonia (recurrent); Z79.899 Other long term (current) drug therapy
CPT/HCPCS: 36415; 71010-TC; 80048-TC; 80053-TC; 80164-TC; 82746; 83735-TC; 84443-TC; 85025-TC; 97001-TC; 97116-TC; 97530-TC